=== PATIENT | female | born 1940 | race Hispanic/Latino ===

== ENCOUNTER 2020-10-05 03:30 | Inpatient (IN) | payer MEDICARE, OTHER ==
[2020-10-05] MEDS ORDERED: Diltiazem 125 MG/25 ML ONE (04:07)
[2020-10-05] MEDS ORDERED: Acetaminophen 325 MG TAB PO PRN (04:19)
[2020-10-05] MEDS ORDERED: Ondansetron PF 4 MG/2 ML Vial IVP PRN (04:19)
[2020-10-05] MEDS ORDERED: HumaLOG 300 UNITS/3 ML VIAL SC PRN (04:22)
[2020-10-05] MEDS ORDERED: Dextrose 50% Abboject 50 ML SYRINGE SLOW IVP PRN (04:22)
[2020-10-05] MEDS ORDERED: Dextrose 5% in Water 1,000 ML IV PRN (04:22)
[2020-10-05] MEDS ORDERED: Diltiazem 125 MG in Sodium Chloride 0.9% 100 ML IVPB SCH (04:30)
[2020-10-05 04:49] LABS: #Basophils 0.1 thou/uL (0.0-0.2); #Lymphocytes 2.7 thou/uL (1.20-3.40); #Monocytes 0.7 thou/uL (0.11-0.59); #Neutrophils 8.4 thou/uL (1.40-6.50); %Basophils 0.6 % (0.0-1.0); %Eosinophils 0.3 % (0.0-10.0); %Lymphocytes 22.8 % (21.0-51.0); %Monocytes 5.5 % (0.0-10.0); %Neutrophils 70.8 % (42.0-75.0); Hemoglobin 15.7 g/dL (12.0-16.0); Mean Corpuscular HGB CONC 33.9 g/dL (32.0-36.0); Mean Corpuscular Volume 91.4 fL (78.0-98.0); Mean Platelet Volume 10.3 fL (7.4-10.4); Platelet Count 201 thou/uL (130-400); RBC Distribution Width 12.5 % (11.5-14.5); Red Blood Cell (RBC) Count 5.08 mill/uL (4.20-5.40); White Blood Cell (WBC) Count 11.9 thou/uL (4.8-10.8)
[2020-10-05 04:59] LABS: Hemoglobin A1c 12.7 % (4.0-6.0)
[2020-10-05 05:10] LABS: ALT (SGPT) 116 U/L (8-55); AST (SGOT) 130 U/L (5-34); Albumin 4.1 g/dL (3.4-4.8); Alkaline Phosphatase 165 U/L (40-110); Anion Gap 18 mmol/L (10-20); BUN (Urea Nitrogen) 17 mg/dL (9.8-20.1); Bilirubin, Total 0.3 mg/dL (0.2-1.2); Calc. Creatinine Clearance 0 mL/min (70-130); Calcium 9.6 mg/dL (7.8-10.44); Carbon Dioxide 17 mmol/L (23-31); Chloride 104 mmol/L (98-107); Globulin 3.9 g/dL (2.4-3.5); Glucose 437 mg/dL (83-110); Magnesium 1.9 mg/dL (1.6-2.6); Potassium 4.4 mmol/L (3.5-5.1); Sodium 135 mmol/L (136-145)
[2020-10-05 05:25] LABS: Troponin I Less than 0.010 ng/mL (< 0.028)
[2020-10-05 05:43] VITALS: BMI 28.0
[2020-10-05] MEDS ORDERED: Enoxaparin Sodium 80 MG/0.8 ML SYRINGE SC SCH ×2 (06:00→21:00)
[2020-10-05] MEDS: HumaLOG 300 UNITS/3 ML VIAL SC PRN ×2 (06:20→17:11)
[2020-10-05] MEDS ORDERED: Magnesium Oxide 400 MG TAB PO SCH (08:00)
[2020-10-05 08:06] LABS: PTT 35.2 sec (22.9-36.1)
[2020-10-05 08:07] LABS: Prothrombin Time 13.3 sec (12.0-14.7)
[2020-10-05 08:39] LABS: HBSAg Index 0.23 S/CO (0-0.99); Hep A IgM AB Non-Reactive (NonReactive); Hep A IgM S/CO 0.53 S/CO (0-0.79); Hep B Surf Ag Non-Reactive S/CO (NonReactive); Hep C IgG Ab Non-Reactive (NonReactive); Hep C Index 0.03 S/CO (0-0.79); Hepatitis B Core IgM Abs Non-Reactive (NonReactive)
[2020-10-05 08:46] LABS: Troponin I 0.028 ng/mL (< 0.028)
[2020-10-05] MEDS ORDERED: Lantus 1000 UNITS/10 ML VIAL SC SCH (12:49)
[2020-10-05 15:52] LABS: SARS-CoV-2 PCR by NAA Not Detected (NotDetected)
[2020-10-05] MEDS: hydrALAZINE 20 MG/ML VIAL SLOW IVP PRN (20:51)
[2020-10-05] MEDS: Lantus 1000 UNITS/10 ML VIAL SC SCH (20:52)
[2020-10-06 04:24] LABS: #Eosinphils 0.1 thou/uL (0.0-0.7); #Lymphocytes 3.4 thou/uL (1.20-3.40); #Monocytes 0.7 thou/uL (0.11-0.59); #Neutrophils 5.3 thou/uL (1.40-6.50); %Basophils 0.4 % (0.0-1.0); %Eosinophils 0.9 % (0.0-10.0); %Lymphocytes 35.7 % (21.0-51.0); %Monocytes 7.2 % (0.0-10.0); %Neutrophils 55.7 % (42.0-75.0); Hemoglobin 14.6 g/dL (12.0-16.0); Mean Corpuscular HGB CONC 34.1 g/dL (32.0-36.0); Mean Corpuscular Hemoglobin 31.1 pg (27.0-31.0); Mean Corpuscular Volume 91.4 fL (78.0-98.0); Mean Platelet Volume 9.4 fL (7.4-10.4); Platelet Count 197 thou/uL (130-400); RBC Distribution Width 12.5 % (11.5-14.5); Red Blood Cell (RBC) Count 4.68 mill/uL (4.20-5.40); White Blood Cell (WBC) Count 9.5 thou/uL (4.8-10.8)
[2020-10-06 04:53] LABS: ALT (SGPT) 70 U/L (8-55); AST (SGOT) 31 U/L (5-34); Albumin 3.7 g/dL (3.4-4.8); Alkaline Phosphatase 105 U/L (40-110); Anion Gap 15 mmol/L (10-20); BUN (Urea Nitrogen) 15 mg/dL (9.8-20.1); Bilirubin, Total 0.5 mg/dL (0.2-1.2); Calc. Creatinine Clearance 69 mL/min (70-130); Carbon Dioxide 21 mmol/L (23-31); Chloride 103 mmol/L (98-107); Cholesterol 185 mg/dl (< 200 Desired); Globulin 3.3 g/dL (2.4-3.5); Glucose 238 mg/dL (83-110); HDL Cholesterol 37 mg/dL (>60 Neg Risk); LDL Cholesterol, Calculated 74 mg/dL; Magnesium 1.8 mg/dL (1.6-2.6); Potassium 3.7 mmol/L (3.5-5.1); Sodium 135 mmol/L (136-145); Triglycerides 372 mg/dL (Less than 150)
[2020-10-06] MEDS: Lantus 1000 UNITS/10 ML VIAL SC SCH (05:48)
[2020-10-06] MEDS: Aspirin 81 mg Enteric Coated Tablet PO SCH (05:55)
[2020-10-06] MEDS: hydrALAZINE 20 MG/ML VIAL SLOW IVP PRN (05:55)
[2020-10-06] MEDS ORDERED: Sodium Chloride 0.9% 1,000 ML IV SCH (06:00)
[2020-10-06] MEDS ORDERED: Lidocaine 1% (PF) 30 ML VIAL ONE (08:42)
[2020-10-06] MEDS ORDERED: CEFAZOLIN 1 GM VIAL ONE (08:50)
[2020-10-06] MEDS ORDERED: Gentamicin 80 MG/2 ML VIAL ONE (08:50)
[2020-10-06] MEDS ORDERED: Midazolam HCl 2 mg/2 ml Vial ONE (09:10)
[2020-10-06] MEDS ORDERED: Fentanyl 100 MCG/2 ML VIAL ONE (09:10)
[2020-10-06] MEDS ORDERED: Iopamidol 370 76% 50 ML VIAL FS ONE ×2 (09:19→10:45)
[2020-10-06] MEDS ORDERED: Acetaminophen/Codeine 30-300mg Tablet PO PRN ×2 (10:44)
[2020-10-06] MEDS ORDERED: Metoprolol Tartrate 50 MG TAB PO SCH (10:45)
[2020-10-06] MEDS ORDERED: glipiZIDE 5 MG TAB PO SCH (11:15)
[2020-10-06] MEDS: HumaLOG 300 UNITS/3 ML VIAL SC PRN ×2 (13:09→17:19)
[2020-10-06] MEDS: Cephalexin 250 MG CAP PO SCH ×2 (15:02→19:58)
[2020-10-06] MEDS: metFORMIN 500 MG TAB PO SCH (17:20)
[2020-10-06] MEDS: Metoprolol Tartrate 50 MG TAB PO SCH (19:57)
[2020-10-06] MEDS: Atorvastatin Calcium 10 MG TAB PO SCH (19:58)
[2020-10-07 05:10] LABS: #Lymphocytes 2.7 thou/uL (1.20-3.40); #Monocytes 0.8 thou/uL (0.11-0.59); #Neutrophils 6.5 thou/uL (1.40-6.50); %Basophils 0.2 % (0.0-1.0); %Eosinophils 0.5 % (0.0-10.0); %Monocytes 7.7 % (0.0-10.0); %Neutrophils 64.6 % (42.0-75.0); Hemoglobin 13.9 g/dL (12.0-16.0); Mean Corpuscular HGB CONC 32.5 g/dL (32.0-36.0); Mean Corpuscular Hemoglobin 29.9 pg (27.0-31.0); Mean Platelet Volume 9.5 fL (7.4-10.4); Platelet Count 186 thou/uL (130-400); RBC Distribution Width 12.5 % (11.5-14.5); Red Blood Cell (RBC) Count 4.65 mill/uL (4.20-5.40); White Blood Cell (WBC) Count 10.1 thou/uL (4.8-10.8)
[2020-10-07 05:33] LABS: ALT (SGPT) 43 U/L (8-55); AST (SGOT) 19 U/L (5-34); Albumin 3.4 g/dL (3.4-4.8); Alkaline Phosphatase 95 U/L (40-110); Anion Gap 13 mmol/L (10-20); BUN (Urea Nitrogen) 15 mg/dL (9.8-20.1); Bilirubin, Total 0.5 mg/dL (0.2-1.2); Calc. Creatinine Clearance 71 mL/min (70-130); Calcium 8.6 mg/dL (7.8-10.44); Carbon Dioxide 21 mmol/L (23-31); Chloride 103 mmol/L (98-107); Globulin 3.1 g/dL (2.4-3.5); Glucose 226 mg/dL (83-110); Magnesium 1.8 mg/dL (1.6-2.6); Potassium 3.9 mmol/L (3.5-5.1); Protein, Total 6.5 g/dL (5.8-8.1); Sodium 133 mmol/L (136-145)
[2020-10-07] MEDS: glipiZIDE 5 MG TAB PO SCH (07:42)
[2020-10-07] MEDS: metFORMIN 500 MG TAB PO SCH ×2 (07:42→16:44)
[2020-10-07] MEDS: Aspirin 81 mg Enteric Coated Tablet PO SCH (07:43)
[2020-10-07] MEDS: Metoprolol Tartrate 50 MG TAB PO SCH ×2 (07:43→20:40)
[2020-10-07] MEDS: Cephalexin 250 MG CAP PO SCH ×3 (07:43→20:40)
[2020-10-07] MEDS: HumaLOG 300 UNITS/3 ML VIAL SC PRN ×2 (11:18→16:44)
[2020-10-07] MEDS: Atorvastatin Calcium 10 MG TAB PO SCH (20:40)
[2020-10-08 05:16] LABS: #Basophils 0.1 thou/uL (0.0-0.2); #Eosinphils 0.1 thou/uL (0.0-0.7); #Lymphocytes 2.9 thou/uL (1.20-3.40); #Monocytes 0.6 thou/uL (0.11-0.59); #Neutrophils 5.4 thou/uL (1.40-6.50); %Basophils 0.7 % (0.0-1.0); %Eosinophils 0.6 % (0.0-10.0); %Lymphocytes 32.4 % (21.0-51.0); %Monocytes 6.8 % (0.0-10.0); %Neutrophils 59.5 % (42.0-75.0); Hemoglobin 14.3 g/dL (12.0-16.0); Mean Corpuscular Hemoglobin 31.4 pg (27.0-31.0); Mean Corpuscular Volume 92.4 fL (78.0-98.0); Mean Platelet Volume 9.6 fL (7.4-10.4); Platelet Count 166 thou/uL (130-400); RBC Distribution Width 12.4 % (11.5-14.5); Red Blood Cell (RBC) Count 4.55 mill/uL (4.20-5.40); White Blood Cell (WBC) Count 9.1 thou/uL (4.8-10.8)
[2020-10-08 05:39] LABS: ALT (SGPT) 33 U/L (8-55); AST (SGOT) 16 U/L (5-34); Albumin 3.4 g/dL (3.4-4.8); Alkaline Phosphatase 92 U/L (40-110); Anion Gap 12 mmol/L (10-20); BUN (Urea Nitrogen) 13 mg/dL (9.8-20.1); Bilirubin, Total 0.5 mg/dL (0.2-1.2); Calc. Creatinine Clearance 72 mL/min (70-130); Calcium 8.7 mg/dL (7.8-10.44); Carbon Dioxide 23 mmol/L (23-31); Chloride 104 mmol/L (98-107); Globulin 3.1 g/dL (2.4-3.5); Glucose 235 mg/dL (83-110); Magnesium 1.8 mg/dL (1.6-2.6); Protein, Total 6.5 g/dL (5.8-8.1); Sodium 135 mmol/L (136-145)
[2020-10-08] MEDS: HumaLOG 300 UNITS/3 ML VIAL SC PRN (06:18)
[2020-10-08] MEDS: Cephalexin 250 MG CAP PO SCH (08:16)
[2020-10-08] MEDS: Aspirin 81 mg Enteric Coated Tablet PO SCH (08:16)
[2020-10-08] MEDS: metFORMIN 500 MG TAB PO SCH (08:16)
[2020-10-08] MEDS: glipiZIDE 5 MG TAB PO SCH (08:16)
[2020-10-08 08:42] VITALS: BP 144/71; TEMP 98.2
[2020-10-08] MEDS ORDERED: Metoprolol Tartrate 50 MG TAB PO SCH (09:00)
[2020-10-09] MEDS ORDERED: Apixaban 5 MG TAB PO SCH (09:00)
== END 2020-10-08 11:00 | disposition home or self-care (01) | DRG 244 ==
LOC: ERS 03:30 → IMCU/EMU 04:19 → 2SW 10-06 09:28
PROVIDERS: ADMIT Internal Medicine; ATTEND Internal Medicine
PROC: 0JH606Z Insertion of Pacemaker, Dual Chamber into Chest Subcutaneous Tissue and Fascia, Open Approach (ICD-10-PCS; principal; 2020-10-06)
PROC: 02HK3JZ Insertion of Pacemaker Lead into Right Ventricle, Percutaneous Approach (ICD-10-PCS; 2020-10-06)
PROC: 02H63JZ Insertion of Pacemaker Lead into Right Atrium, Percutaneous Approach (ICD-10-PCS; 2020-10-06)
PROC: B2151ZZ Fluoroscopy of Left Heart using Low Osmolar Contrast (ICD-10-PCS; 2020-10-06)
DX: I48.91 Unspecified atrial fibrillation (principal); E11.9 Type 2 diabetes mellitus without complications; I45.10 Unspecified right bundle-branch block; R74.8 Abnormal levels of other serum enzymes; I45.5 Other specified heart block; Z20.822 Contact with and (suspected) exposure to COVID-19; E11.65 Type 2 diabetes mellitus with hyperglycemia; K76.1 Chronic passive congestion of liver; I10 Essential (primary) hypertension; Z79.82 Long term (current) use of aspirin; Z98.890 Other specified postprocedural states; Z91.14 Patient's other noncompliance with medication regimen
CPT/HCPCS: 33208; 36005; 36415; 36416; 71045; 75820; 80053; 80061; 80074; 83036; 83735; 83880; 84443; 84484; 85025; 85379; 85610; 85730; 93005; 93010; 93306; 93798; 96365; 96374; 99152; 99153; C1785; C1898; J0360; J0690; J1580; J1650; J1815; J2001; J2250; J3010; Q9967; U0003; U0005